=== PATIENT | male | born 1980 | race African-American/Black ===

== ENCOUNTER 2016-11-21 23:46 | Emergency (ER) | payer SELFPAY ==
[2016-11-22 00:33] VITALS: BP 127/68; PULSE 78; TEMP 97.9; BMI 24.7
[2016-11-22] MEDS ORDERED: CLINDAMYCIN HCL 150 MG CAPSULE (FP) PO ONE (00:37)
--- NOTE | 2016-11-22 00:37 | PDOC ---
History of Present Illness - General Chief Complaint: Edema Stated Complaint: LIP SWELLING Time Seen by Provider: 11/22/16 00:30 History Source: Patient Exam Limitations: No Limitations - History of Present Illness Initial Comments: 11/22/16 00:47 36-year-old male with no medical history presents to the emergency department complaining of a bump to the left upper lip. Patient states he went to the [facility] 4 days ago and had a shave. He was convinced the razor blade was not clean because a couple of hours later, he felt a small bump to his lip. He noticed increasing swelling with purulent drainage 3 days. He denies fever, chills, dental pain or difficulty swallowing. Timing/Duration: other (x4d) Associated Symptoms: reports: denies symptoms Past History - Past Medical History Allergies/Adverse Reactions: Allergies Allergy/AdvReac Type Severity Reaction Status Date / Time No Known Drug Allergies Allergy Verified 11/22/16 00:31 Home Medications: Ambulatory Orders Acetaminophen W/ Codeine #3 [Tylenol # 3 -] 1 - 2 tab PO Q4H PRN 05/24/12 Clindamycin [Cleocin -] 300 mg PO TID #21 capsule 11/22/16 Sulfamethoxazole/Trimethoprim [Bactrim Ds -] 1 tab PO BID #14 tablet 11/22/16 Asthma: Yes (H/O BRONCHITIS) - Psycho/Social/Smoking Cessation Hx Suicidal Ideation: No Smoking History: Never smoked Have you smoked in the past 12 months: No If you are a former smoker, when did you quit?: 10YRS AGO Information on smoking cessation initiated: No Hx Alcohol Use: No Drug/Substance Use Hx: No Substance Use Type: Marijuana Review of Systems - Review of Systems Able to Perform ROS?: Yes Comments:: 11/22/16 00:46 CONSTITUTIONAL: Absent: fever, chills, diaphoresis, generalized weakness, malaise, loss of appetite SKIN: Left upper lip: Pain and swelling Absent: rash, itching, pallor HEMATOLOGIC/IMMUNOLOGIC: Absent: easy bleeding Is the patient limited Nauruan proficient: No *Physical Exam - Vital Signs Last Vital Signs Temp Pulse Resp BP Pulse Ox 97.9 F 78 20 127/68 99 11/22/16 00:32 11/22/16 00:32 11/22/16 00:32 11/22/16 00:32 11/22/16 00:32 - Physical Exam Comments: 11/22/16 00:47 GENERAL: Well developed, well nourished. Awake and alert. No acute distress. SKIN: Warm and dry. Normal capillary refill. No rashes. No jaundice. fluctulant 1cm with min drainage *DC/Admit/Observation/Transfer Diagnosis at time of Disposition: Abscess - Discharge Dispostion Admit: No - Prescriptions Prescriptions: Sulfamethoxazole/Trimethoprim [Bactrim Ds -] 1 tab PO BID #14 tablet Clindamycin [Cleocin -] 300 mg PO TID #21 capsule - Patient Instructions Printed Discharge Instructions: DI for Skin Abscess Additional Instructions: Warm compresses Tylenol as needed for pain Rx: Clindamycin 300mg take 1 tableft three times a day for 7 day Wound culture sent Wound check in 2 days Return to the ER for increase swelling, copious drainage, redness Progress Note - Progress Note Progress Note: Procedure: left upper lip; wound culture/ copious greenish purulent drainage
[2016-11-22] MEDS ORDERED: CLINDAMYCIN HCL 150 MG CAPSULE (FP) ONE (00:51)
--- NOTE | 2016-11-23 12:46 | PDOC ---
*Physical Exam - Vital Signs Last Vital Signs Temp Pulse Resp BP Pulse Ox 97.9 F 78 20 127/68 99 11/22/16 00:32 11/22/16 00:32 11/22/16 00:32 11/22/16 00:32 11/22/16 00:32 - Physical Exam Comments: 11/23/16 12:44 Wound culture preliminary results received in FT. Presumptive MSSA. Clindamycin and Bactrim rx's already prescribed by MELISSA Fritz. ED Treatment Course - ADDITIONAL ORDERS Additional order review: 11/22/16 01:00 Wound Culture - Preliminary Lip Presumptive Mssa (Pbp2a Neg) - Medications Given in the ED: ED Medications Discontinued Medications Generic Name Dose Route Start Last Admin Trade Name Alycia PRN Reason Stop Dose Admin Clindamycin HCl 300 mg 11/22/16 00:37 11/22/16 00:54 Cleocin - PO 11/22/16 00:38 300 mg ONCE ONE Administration *DC/Admit/Observation/Transfer Diagnosis at time of Disposition: Abscess - Discharge Dispostion Disposition: HOME - Prescriptions Prescriptions: Sulfamethoxazole/Trimethoprim [Bactrim Ds -] 1 tab PO BID #14 tablet Clindamycin [Cleocin -] 300 mg PO TID #21 capsule - Referrals - Patient Instructions Printed Discharge Instructions: DI for Skin Abscess Additional Instructions: Warm compresses Tylenol as needed for pain Rx: Clindamycin 300mg take 1 tableft three times a day for 7 day Wound culture sent Wound check in 2 days Return to the ER for increase swelling, copious drainage, redness - Post Discharge Activity
--- NOTE | 2016-11-24 17:47 | PDOC ---
Patient Follow-up (Call Back) - Post ED Follow - Up Disposition at time of original discharge: HOME Reason for Call Back: Abnwl. Microbiology (Patient with positive wound culture, MRSA on clindamycin appropriate treatment)
== END 2016-11-22 01:43 | disposition home or self-care (01) ==
LOC: JER 23:46
DX: K13.0 Diseases of lips (principal)
CPT/HCPCS: 87070; 87186; 87205; 99281-25

== ENCOUNTER 2017-02-14 16:27 | Emergency (ER) | payer OTHER ==
[2017-02-14 16:46] VITALS: BP 130/71; PULSE 75; TEMP 98.6; BMI 24.3
--- NOTE | 2017-02-14 17:51 | PDOC ---
History of Present Illness - General Chief Complaint: Headache Stated Complaint: HEADACHE Time Seen by Provider: 02/14/17 17:35 History Source: Patient Exam Limitations: No Limitations - History of Present Illness Initial Comments: 02/14/17 17:44 36 yr male with c/o left sided nasal congestion to his left cheek. no fever, states 2 days sinus congestion and pain. no medical history or allergies. Timing/Duration: 24 hours Severity: mild Past History - Past Medical History Allergies/Adverse Reactions: Allergies Allergy/AdvReac Type Severity Reaction Status Date / Time No Known Drug Allergies Allergy Verified 02/14/17 16:46 Home Medications: Ambulatory Orders Acetaminophen W/ Codeine #3 [Tylenol # 3 -] 1 - 2 tab PO Q4H PRN 05/24/12 Clindamycin [Cleocin -] 300 mg PO TID #21 capsule 11/22/16 Sulfamethoxazole/Trimethoprim [Bactrim Ds -] 1 tab PO BID #14 tablet 11/22/16 Fluticasone Prop 0.05% Nasal [Flonase -] 1 - 2 spray NS BID #1 spray.pump Asthma: Yes (H/O BRONCHITIS) Other medical history: sinus congestion - Immunization History Immunization Up to Date: Yes - Suicide/Smoking/Psychosocial Hx Smoking History: Never smoked Have you smoked in the past 12 months: No If you are a former smoker, when did you quit?: 10YRS AGO Information on smoking cessation initiated: No Hx Alcohol Use: No Drug/Substance Use Hx: No Substance Use Type: Marijuana Review of Systems - Review of Systems Able to Perform ROS?: Yes Is the patient limited Liberian proficient: No Constitutional: No: Symptoms Reported HEENTM: Yes: See HPI Respiratory: No: Symptoms reported Cardiac (ROS): No: Symptoms Reported ABD/GI: No: Symptoms Reported : No: Symptoms Reported Musculoskeletal: No: Symptoms Reported Integumentary: No: Symptoms Reported Neurological: No: Symptoms reported *Physical Exam - Vital Signs Last Vital Signs Temp Pulse Resp BP Pulse Ox 98.6 F 75 18 130/71 100 02/14/17 16:44 02/14/17 16:44 02/14/17 16:44 02/14/17 16:44 02/14/17 16:44 - Physical Exam General Appearance: Yes: Nourished, Appropriately Dressed HEENT: positive: EOMI, ROSE, Nasal Congestion, Sinus Tenderness (left side maxilary ) Respiratory/Chest: positive: Lungs Clear, Normal Breath Sounds Cardiovascular: positive: Regular Rhythm, Regular Rate Integumentary: positive: Normal Color, Dry, Warm Neurologic: positive: Fully Oriented, Alert, Normal Mood/Affect, Normal Response , Motor Strength 5/5 Medical Decision Making - Medical Decision Making 02/14/17 17:46 cc: sinus congestion and facial tenderness for 2 days no discharge no fever or chills no other complaints pt took no meds [employer]PER[employer]OR [employer]ILTING will prescribe flonase ibuprofen PRN for pain *DC/Admit/Observation/Transfer Diagnosis at time of Disposition: Nasal sinus congestion - Discharge Dispostion Disposition: HOME Condition at time of disposition: Good - Prescriptions Prescriptions: Fluticasone Prop 0.05% Nasal [Flonase -] 1 - 2 spray NS BID #1 spray.pump - Referrals Referrals: Tommy Skaggs MD [Staff Physician] - - Patient Instructions Additional Instructions: use the flonase spray as directed use saline nasal spray during the day 4-5 times a day take motrin (ibuprofen) every 6hrs for pain follow with ENT next week call THURSDAY to make appointment return if any worsening symptoms
== END 2017-02-14 17:57 | disposition home or self-care (01) ==
LOC: JERFT 16:27
DX: J34.89 Other specified disorders of nose and nasal sinuses (principal)
CPT/HCPCS: 99281-25

== ENCOUNTER 2019-11-26 11:51 | Emergency (ER) | payer BC, OTHER ==
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
[2019-11-26 12:07] VITALS: BP 136/76; PULSE 81; TEMP 98.4; BMI 24.5
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
== END 2019-11-26 13:08 | disposition home or self-care (01) ==
LOC: JER 11:51
DX: S69.91XA Unspecified injury of right wrist, hand and finger(s), initial encounter (principal)
CPT/HCPCS: 73130-TC-RT-FY; 99283-25